=== PATIENT | female | born 1945 | race Caucasian/White ===

== ENCOUNTER → 2016-11-20 | Outpatient (CLI) | payer MEDICARE ==
--- NOTE | 2016-11-21 09:38 | MM ---
Reason for exam: screening (asymptomatic). Last mammogram was performed 1 year and 7 months ago. History: Patient is postmenopausal. Took estrogen for 16 years beginning at age 50. Took progesterone for 16 years beginning at age 50. Physical Findings: A clinical breast exam by your physician is recommended on an annual basis and results should be correlated with mammographic findings. MG 3D Screening Mammo W/Cad Bilateral CC and MLO view(s) were taken. Prior study comparison: April 16, 2015, bilateral MG 3d screening mammo w/cad. March 18, 2013, bilateral digital screening mammo w/CAD. February 05, 2011, bilateral digital screening mammo w/CAD. There are scattered fibroglandular densities. No suspicious abnormality. No significant changes when compared with prior studies. ASSESSMENT: Negative, BI-RAD 1 RECOMMENDATION: Routine screening mammogram of both breasts in 1 year.
== END | disposition home or self-care (01) ==
LOC: RADMAMWWP 15:12
PROVIDERS: ATTEND Family Medicine
DX: Z12.31 Encounter for screening mammogram for malignant neoplasm of breast (principal)
CPT/HCPCS: 77063; G0202

== ENCOUNTER → 2018-10-27 | Outpatient (CLI) | payer MEDICARE ==
--- NOTE | 2018-10-27 14:39 | MM ---
Reason for exam: screening (asymptomatic). Last mammogram was performed 1 year and 11 months ago. History: Patient is postmenopausal. Family history of breast cancer in daughter at age 45. Took estrogen for 16 years beginning at age 50. Took progesterone for 16 years beginning at age 50. Physical Findings: A clinical breast exam by your physician is recommended on an annual basis and results should be correlated with mammographic findings. MG 3D Screening Mammo W/Cad Bilateral CC and MLO view(s) were taken. Prior study comparison: November 20, 2016, bilateral MG 3d screening mammo w/cad. April 16, 2015, bilateral MG 3d screening mammo w/cad. The breast tissue is heterogeneously dense. This may lower the sensitivity of mammography. There are benign appearing round calcifications in the right breast. There is chronic nodularity in the left breast. There is no discrete abnormality. ASSESSMENT: Benign, BI-RAD 2 RECOMMENDATION: Routine screening mammogram of both breasts in 1 year.
== END | disposition home or self-care (01) ==
LOC: RADMAMWWP 10:19
PROVIDERS: ATTEND Family Medicine
DX: Z12.31 Encounter for screening mammogram for malignant neoplasm of breast (principal)
CPT/HCPCS: 77063; 77067

== ENCOUNTER → 2020-02-27 | Outpatient (CLI) | payer MEDICARE ==
--- NOTE | 2020-02-27 16:27 | BD ---
EXAMINATION TYPE: Axial Bone Density DATE OF EXAM: 02/27/2020 COMPARISON: NONE CLINICAL HISTORY: Height: 63 IN Weight: 161 LBS FRAX RISK QUESTIONS: Secondary Osteoporosis: 3. Menopause before 45: AGE 44 RISK FACTORS HISTORY OF: Surgery to Hip(IMCHAEL): RT 2012; LT 2013 Active: YES Postmenopausal woman: AGE 44 Take estrogen and/or progesterone medications: NOT NOW How long: PREVIOUSLY TOOK FOR 10 YEARS MEDICATIONS: Additional Medications: MULTI VIT, BLOOD PRESSURE MEDS, EXAM MEASUREMENTS: Bone mineral densitometry was performed using the [employer] System. Bone mineral density as measured about the Lumbar spine is: ----- L1-L4(G/cm2): 1.331 T Score Values are as follows: ----- L2: -0.4 ----- L3: 2.9 ----- L4: 3.3 ----- L1-L4: 1.3 Bone mineral density has: Increased 14.5% since study of: 08/14/2008 [facility]PLACEMENT[facility] Bone mineral density about the L Wrist (g/cm2): 0.677 T Score values are as follows: -----Dist. R+U: -0.1 -----Prox. R+U: -0.3 -----Radius total: 0.0 Bone mineral density BASELINE IMPRESSION: Normal (Values between +1 and -1 indicate normal bone mass). Consider repeating this study in 5 year s or sooner if there is some new clinical indication. NOTE: T-SCORE=SD OF THE YOUNG ADULT MEAN.
--- NOTE | 2020-02-29 08:57 | MM ---
Reason for exam: screening (asymptomatic). Last mammogram was performed 1 year and 4 months ago. History: Patient is postmenopausal. Family history of breast cancer in daughter at age 45. Took estrogen for 16 years beginning at age 50. Took progesterone for 16 years beginning at age 50. Physical Findings: A clinical breast exam by your physician is recommended on an annual basis and results should be correlated with mammographic findings. MG 3D Screening Mammo W/Cad Bilateral CC and MLO view(s) were taken. Prior study comparison: October 27, 2018, bilateral MG 3d screening mammo w/cad. November 20, 2016, bilateral MG 3d screening mammo w/cad. There are scattered fibroglandular densities. There is chronic nodularity in the left breast upper outer quadrant. No significant changes when compared with prior studies. ASSESSMENT: Negative, BI-RAD 1 RECOMMENDATION: Routine screening mammogram of both breasts in 1 year.
== END | disposition home or self-care (01) ==
LOC: RADBDWWP 12:21
PROVIDERS: ATTEND Family Medicine
DX: Z12.31 Encounter for screening mammogram for malignant neoplasm of breast (principal); Z13.820 Encounter for screening for osteoporosis
CPT/HCPCS: 77063; 77067; 77080

== ENCOUNTER → 2021-03-15 | Outpatient (CLI) | payer MEDICARE ==
--- NOTE | 2021-03-19 12:01 | MM ---
Reason for exam: screening (asymptomatic). Last mammogram was performed 1 year and 1 month ago. History: Patient is postmenopausal. Family history of breast cancer in daughter at age 45. Took estrogen for 16 years beginning at age 50. Took progesterone for 16 years beginning at age 50. Physical Findings: A clinical breast exam by your physician is recommended on an annual basis and results should be correlated with mammographic findings. MG 3D Screening Mammo W/Cad Bilateral CC and MLO view(s) were taken. Prior study comparison: February 27, 2020, bilateral MG 3d screening mammo w/cad. October 27, 2018, bilateral MG 3d screening mammo w/cad. There are scattered fibroglandular densities. There is chronic nodularity in the left upper outer quadrant. Stable asymmetric density central right CC view. No significant changes when compared with prior studies. ASSESSMENT: Benign, BI-RAD 2 RECOMMENDATION: Routine screening mammogram of both breasts in 1 year.
== END | disposition home or self-care (01) ==
LOC: RADMAMWWP 16:36
PROVIDERS: ATTEND Family Medicine
DX: Z12.31 Encounter for screening mammogram for malignant neoplasm of breast (principal)
CPT/HCPCS: 77063; 77067

== ENCOUNTER 2021-09-04 16:40 | Inpatient (IN) | payer MEDICARE ==
[2021-09-04] MEDS ORDERED: VANCOMYCIN IV PER PHARMACY 1 EACH MISC MISCELLANE PRN (20:40)
--- NOTE | 2021-09-04 20:44 | ED ---
General Adult HPI - General Chief complaint: Extremity Problem,Nontraumatic Stated complaint: infection Time Seen by Provider: 09/04/21 20:30 Source: patient, RN notes reviewed, old records reviewed Mode of arrival: ambulatory Limitations: no limitations - History of Present Illness Initial comments: This is a 75-year-old female who presents to the emergency department complaining of swelling and redness and tenderness to the elbow since chest. Patient states he was confined of the elbow yesterday and today started to spread up the posterior aspect of her arm and down the posterior aspect of her forearm. Patient states she went to see her primary medical care doctor and they sent her into the emergency department because of the extent of the redness and swelling. Patient says since they've outlined the redness a few hours ago the redness is spread beyond the line. - Related Data Allergies Allergy/AdvReac Type Severity Reaction Status Date / Time No Known Allergies Allergy Verified 09/04/21 17:04 Review of Systems ROS Statement: Those systems with pertinent positive or pertinent negative responses have been documented in the HPI. ROS Other: All systems not noted in ROS Statement are negative. Past Medical History Past Medical History: Hypertension History of Any Multi-Drug Resistant Organisms: None Reported Past Surgical History: Joint Replacement Past Psychological History: No Psychological Hx Reported Smoking Status: Never smoker Past Alcohol Use History: Occasional Past Drug Use History: None Reported General Exam - General Exam Comments Initial Comments: GENERAL: Patient is well-developed and well-nourished. Patient is nontoxic and well- hydrated and is in mild distress. ENT: Neck is soft and supple. No significant lymphadenopathy is noted. Oropharynx is clear. Moist mucous membranes. Neck has full range of motion without eliciting any pain. EYES: The sclera were anicteric and conjunctiva were pink and moist. Extraocular movements were intact and pupils were equal round and reactive to light. Eyelids were unremarkable. PULMONARY: Unlabored respirations. Good breath sounds bilaterally. No audible rales rhonchi or wheezing was noted. CARDIOVASCULAR: There is a regular rate and rhythm without any murmurs gallops or rubs. ABDOMEN: Soft and nontender with normal bowel sounds. SKIN: Skin is clear with no lesions or rashes and otherwise unremarkable. NEUROLOGIC: Patient is alert and oriented x3. Cranial nerves II through XII are grossly intact. Motor and sensory are also intact. Normal speech, volume and content. Symmetrical smile. MUSCULOSKELETAL: Posterior aspect of the elbow was swollen red fluctuant hot. Patient's arm has erythema all the way to the distal forearm and the proximal arm. Patient has outlined the area of infection and is spread since the outline was done a few hours ago. LYMPHATICS: No significant lymphadenopathy is noted PSYCHIATRIC: Normal psychiatric evaluation. Limitations: no limitations Course Vital Signs 09/04/21 17:01 Temperature 98.3 F Pulse Rate 86 Respiratory 20 Rate Blood Pressure 115/69 O2 Sat by Pulse 96 Oximetry Disposition Clinical Impression: Septic olecranon bursitis of right elbow, Cellulitis of arm, right Disposition: ADMITTED IP TO THIS HOSP Referrals: Troy Campbell III, MD [Primary Care Provider] - 1-2 days Time of Disposition: 20:44
[2021-09-04] MEDS ORDERED: VANCOMYCIN 1,250 MG in SODIUM CHLORIDE 0.9% 250 ML IVPB STA (20:47)
[2021-09-04] MEDS ORDERED: SODIUM CHLORIDE 0.9% 1,000 ML IV ONE (20:56)
--- NOTE | 2021-09-04 21:01 | XR ---
EXAMINATION TYPE: XR elbow limited RT DATE OF EXAM: 09/04/2021 8:50 PM INDICATION: Patient age:Female; 75 years old; Reason for study: Septic olecranon bursitis; COMPARISON: None TECHNIQUE: The right elbow was examined in AP, lateral, and oblique projections. FINDINGS: There is soft tissue thickening of the skin over the olecranon process. No subcutaneous gas . No evidence of fracture. No evidence of osseous erosion. No evidence of any acute osseous pathology , joint dislocation. No evidence of joint effusion is present. IMPRESSION: 1. Soft tissue thickening over the olecranon process which can be seen in setting of olecranon bursi tis. 2. No evidence of acute fracture.
[2021-09-04] MEDS: SODIUM CHLORIDE 0.9% 500 ML 500 ML IV SCH ×2 (21:17→22:15)
[2021-09-04 21:47] LABS: Basophils # (A) 0.1 k/uL (0-0.2); Basophils % (A) 0 %; Eosinophils # (A) 0.3 k/uL (0-0.7); Eosinophils % (A) 1 %; HCT 41.1 % (34.0-46.0); HGB 13.4 gm/dL (11.4-16.0); Lymphocytes # (A) 1.4 k/uL (1.0-4.8); Lymphocytes % (A) 8 %; MCH 35.1 pg (25.0-35.0); MCHC 32.7 g/dL (31.0-37.0); MCV 107.3 fL (80.0-100.0); Macrocytosis Moderate; Mean Platelet Volume 7.9; Monocytes # (A) 0.7 k/uL (0-1.0); Monocytes % (A) 4 %; Neutrophils # (A) 15.5 k/uL (1.3-7.7); Neutrophils % (A) 85 %; Platelet Count 238 k/uL (150-450); RBC 3.83 m/uL (3.80-5.40); RDW 12.7 % (11.5-15.5); WBC 18.2 k/uL (3.8-10.6)
[2021-09-04 22:00] LABS: ALT 20 U/L (4-34); AST 32 U/L (14-36); African American GFR (CKD) >90 (>60 ml/min/1.73 sqM); Albumin 4.8 g/dL (3.5-5.0); Alkaline Phosphatase 112 U/L (38-126); Anion Gap 12 mmol/L; Blood Urea Nitrogen 14 mg/dL (7-17); Calcium 9.8 mg/dL (8.4-10.2); Carbon Dioxide 23 mmol/L (22-30); Chloride 99 mmol/L (98-107); Glucose 105 mg/dL (74-99); Non-African American GFR(CKD) 89 (>60 ml/min/1.73 sqM); Potassium 4.6 mmol/L (3.5-5.1); Sodium 134 mmol/L (137-145); Total Bilirubin 0.8 mg/dL (0.2-1.3); Total Protein 7.7 g/dL (6.3-8.2)
[2021-09-05] MEDS: LORATADINE 10 MG TAB PO SCH (09:25)
[2021-09-05] MEDS: FLUTICASONE 50MCG/SPRAY NASAL 16GM EA NOSTRIL SCH (09:25)
[2021-09-05] MEDS: VANCOMYCIN 1,250 MG in SODIUM CHLORIDE 0.9% 250 ML IVPB SCH ×2 (09:26→20:22)
--- NOTE | 2021-09-05 09:29 | P.CNOR ---
History of Present Illness - [facility] Consult date: 09/05/21 Consult reason: joint pain (Right elbow pain and swelling.) History of present illness: This is a 75-year-old female admitted through the emergency department last evening with increased pain and swelling to the right elbow. She states that she began having discomfort in her right elbow on Thursday this week. By Thursday morning she had increased swelling and redness. She stated that the redness started going upper arm. She was having some low-grade fever and chills at home. She presented to the emergency department last evening and she was admitted for IV antibiotics. We are consulted for orthopedic evaluation. Past Medical History Past Medical History: Hypertension History of Any Multi-Drug Resistant Organisms: None Reported Past Surgical History: Joint Replacement Past Psychological History: No Psychological Hx Reported Smoking Status: Never smoker Past Alcohol Use History: Occasional Past Drug Use History: None Reported Medications and Allergies Home Medications Medication Instructions Recorded Confirmed Type Cetirizine HCl [Zyrtec] 10 mg PO DAILY 09/04/21 09/04/21 History Fluticasone Nasal [place] [Flonase 2 spray EA NOSTRIL DAILY 09/04/21 09/04/21 History Nasal [place]] Melatonin 10 mg PO HS 09/04/21 09/04/21 History Naproxen Sodium [Aleve] 220 mg PO BID 09/04/21 09/04/21 History Tamsulosin HCl [Flomax] 0.4 mg PO HS 09/04/21 09/04/21 History diphenhydrAMINE HCL [Benadryl] 25 mg PO HS 09/04/21 09/04/21 History Metoprolol Tartrate [Lopressor] 50 mg PO BID 09/05/21 09/05/21 History Simvastatin [Zocor] 20 mg PO HS 09/05/21 09/05/21 History lisinopriL [Zestril] 20 mg PO DAILY 09/05/21 09/05/21 History Allergies Allergy/AdvReac Type Severity Reaction Status Date / Time No Known Allergies Allergy Verified 09/04/21 21:47 Physical Examination This is a pleasant 75-year-old female in no acute distress. She is alert and oriented 3. Exam of the right upper extremity reveals erythema and swelling to the elbow. There is fluctuance to the olecranon bursa. There is a small scab to the posterior elbow. There is no active drainage at this time. She has slight limitation in range of motion of the elbow secondary to pain and swelling. Full wrist and finger motion without difficulty or pain. Neurovascular status to the upper extremity is intact. Results X-rays of the elbow reveal no acute bony abnormality. Minimal arthritic changes. - Labs Labs: Abnormal Lab Results - Last 24 Hours (Table) 09/04/21 09/04/21 Range/Units 21:38 21:38 WBC 18.2 H (3.8-10.6) k/uL MCV 107.3 H (80.0-100.0) fL MCH 35.1 H (25.0-35.0) pg Neutrophils # 15.5 H (1.3-7.7) k/uL Sodium 134 L (137-145) mmol/L Glucose 105 H (74-99) mg/dL H & H 09/04/21 Range/Units 21:38 Hgb 13.4 (11.4-16.0) gm/dL Hct 41.1 (34.0-46.0) % Result Diagrams: 09/04/21 21:38 09/04/21 21:38 Assessment and Plan (1) Cellulitis of arm, right Current Visit: Yes Status: Acute Code(s): L03.113 - CELLULITIS OF RIGHT UPPER LIMB SNOMED Code(s): 470303933 (2) Septic olecranon bursitis of right elbow Current Visit: Yes Status: Acute Code(s): M71.121 - OTHER INFECTIVE BURSITIS, RIGHT ELBOW SNOMED Code(s): 6790493243923636 Plan: The clinical and x-ray findings are discussed with the patient. We discussed the increased complication rate with opening and olecranon bursa which includes delayed healing and continued drainage postoperatively. I would like to give her least a full 24 hours on IV antibiotics before deciding on an operative treatment. I will keep her nothing by mouth after midnight tonight and reevaluate in the morning. I've ordered a K pad for moist heat. Continue IV antibiotics. Infectious disease is consulted.
[2021-09-05] MEDS: SODIUM CHLORIDE 0.9% 1,000 ML IV SCH ×2 (09:33→20:06)
--- NOTE | 2021-09-05 10:14 | P.HPIM ---
History of Present Illness This is a pleasant 75 years old female who presents with past medical history of hypertension, hyperlipidemia Patient presents because of right arm and forearm swelling, redness for about a week which started last Thursday as small pimple. Patient denies trauma or bug bite but states that it gets callous and hurts when she sits on her computer for quite some time. Denies other symptoms no chest pain or dyspnea. No diarrhea or vomiting, no urinary complaints. No fever. She denies smoking, illicit drugs. She drinks of wine every night. Vital signs stable She has leukocytosis of 18.2, rest of CBC, BMP and liver enzymes are unremarkable. Right elbow x-ray shows soft tissue thickening over the olecranon process which can be seen in the setting of olecranon bursitis. No evidence of fracture patient was started on cefazolin, IV vancomycin with IV fluids Review of Systems CONSTITUTIONAL: No fever, no malaise, no fatigue. HEENT: No recent visual problems or hearing problems. Denied any sore throat. CARDIOVASCULAR: No orthopnea, PND, no palpitations, no syncope. PULMONARY: No shortness of breath, no cough, no hemoptysis. GASTROINTESTINAL: No diarrhea, no nausea, no vomiting, no abdominal pain. Normoactive bowel sounds. NEUROLOGICAL: No headaches, no weakness, no numbness. HEMATOLOGICAL: Denies any bleeding or petechiae. GENITOURINARY: Denies any burning micturition, frequency, or urgency. MUSCULOSKELETAL/RHEUMATOLOGICAL: Denies any joint pain, swelling, or any muscle pain. ENDOCRINE: Denies any polyuria or polydipsia. Past Medical History Past Medical History: Hypertension History of Any Multi-Drug Resistant Organisms: None Reported Past Surgical History: Joint Replacement Past Psychological History: No Psychological Hx Reported Smoking Status: Never smoker Past Alcohol Use History: Occasional Past Drug Use History: None Reported Medications and Allergies Home Medications Medication Instructions Recorded Confirmed Type Cetirizine HCl [Zyrtec] 10 mg PO DAILY 09/04/21 09/04/21 History Fluticasone Nasal [place] [Flonase 2 spray EA NOSTRIL DAILY 09/04/21 09/04/21 History Nasal [place]] Melatonin 10 mg PO HS 09/04/21 09/04/21 History Naproxen Sodium [Aleve] 220 mg PO BID 09/04/21 09/04/21 History Tamsulosin HCl [Flomax] 0.4 mg PO HS 09/04/21 09/04/21 History diphenhydrAMINE HCL [Benadryl] 25 mg PO HS 09/04/21 09/04/21 History Metoprolol Tartrate [Lopressor] 50 mg PO BID 09/05/21 09/05/21 History Simvastatin [Zocor] 20 mg PO HS 09/05/21 09/05/21 History lisinopriL [Zestril] 20 mg PO DAILY 09/05/21 09/05/21 History Allergies Allergy/AdvReac Type Severity Reaction Status Date / Time No Known Allergies Allergy Verified 09/04/21 21:47 Physical Exam Vitals: Vital Signs Temp Pulse Pulse Resp BP BP Pulse Ox 09/05/21 01:24 97.9 F 95 18 123/64 97 09/04/21 23:04 98.6 F 93 18 112/74 98 09/04/21 17:01 98.3 F 86 20 115/69 96 Intake and Output 09/04/21 09/05/21 09/05/21 22:59 06:59 14:59 Intake Total 240 Balance 240 Intake: Oral 240 Other: # Voids 3 Weight 71.668 kg GENERAL: The patient is alert and oriented x3, not in any acute distress. Well developed, well nourished. HEENT: Pupils are round and equally reacting to light. EOMI. No scleral icterus. No conjunctival pallor. Normocephalic, atraumatic. No pharyngeal erythema. No thyromegaly. CARDIOVASCULAR: S1 and S2 present. No murmurs, rubs, or gallops. PULMONARY: Chest is clear to auscultation, no wheezing or crackles. ABDOMEN: Soft, nontender, nondistended, normoactive bowel sounds. No palpable organomegaly. MUSCULOSKELETAL: No joint swelling or deformity. EXTREMITIES: No cyanosis, clubbing, or pedal edema. Right elbow is swollen, warm and tender with surrounding erythema and redness and tenderness in both arm and forearm. No restriction of movement in flexion/extension of the elbow NEUROLOGICAL: Gross neurological examination did not reveal any focal deficits. SKIN: No rashes. No petechiae Results CBC & Chem 7: 09/04/21 21:38 09/04/21 21:38 Labs: Abnormal Lab Results - Last 24 Hours (Table) 09/04/21 09/04/21 Range/Units 21:38 21:38 WBC 18.2 H (3.8-10.6) k/uL MCV 107.3 H (80.0-100.0) fL MCH 35.1 H (25.0-35.0) pg Neutrophils # 15.5 H (1.3-7.7) k/uL Sodium 134 L (137-145) mmol/L Glucose 105 H (74-99) mg/dL Assessment and Plan Assessment: Acute right elbow bursitis and cellulitis Hypertension Hyperlipidemia Plan: This is a pleasant 75 years old female who presents with right elbow cellulitis and possible bursitis Continue with antibiotics per ID team. Currently is on cefazolin and IV vancomycin Monitor creatinine Orthopedic and infectious disease team consult Labs and medication were reviewed.. Continue same treatment. Continue with symptomatic treatment. Resume home medication. Monitor lytes and vitals. DVT and GI prophylaxis. Further recommendations depends on the clinical course of the patient DVT prophylaxis: Subcutaneous heparin GI Prophylaxis: Pepcid PT/OT: Pending Prognosis is guarded
[2021-09-05] MEDS ORDERED: ACETAMINOPHEN TAB 325 MG TAB PO PRN (17:51)
[2021-09-05] MEDS: FAMOTIDINE 20 MG TAB PO SCH (20:09)
[2021-09-05] MEDS: HEPARIN SODIUM,PORCINE/PF 5,000 UNIT/0.5 ML SYRINGE SQ SCH (20:09)
[2021-09-05] MEDS: ATORVASTATIN 10 MG TAB PO SCH (20:09)
[2021-09-05] MEDS: diphenhydrAMINE 25 MG CAP PO SCH (20:09)
[2021-09-05] MEDS: METOPROLOL TARTRATE 50 MG TAB PO SCH (20:09)
[2021-09-05] MEDS: MELATONIN 5 MG TABLET PO SCH (20:09)
[2021-09-05] MEDS: TAMSULOSIN 0.4 MG CAP.ER.24H PO SCH (20:09)
--- NOTE | 2021-09-05 22:22 | P.CONS ---
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 for evaluation of increasing pain and swelling to the right elbow area that apparently has been going on for about 3 to 4 days before presentation to hospital patient denies having a history of any trauma noted she did have small calluses of bilateral elbow area from the way she states however she noticed to have increasing swelling redness of the right elbow that has progressed to get worse and subsequently patient noticed the swelling of the redness progressing to the right forearm patient complaining of pain especially when area is touched or any pressure on it and is mostly dull aching to sharp 4-5 out of 10 no radiation patient denies having any drainage from the area patient did went to see her primary care physician and the patient was advised to go to the hospital on arrival to the ER patient was afebrile this morning she did have a low-grade fever of 99.4 patient did have mild tachycardia white count of 18.2 with a left shift creatinine was normal patient did have a x-ray of the elbow soft tissue thickening over the olecranon process which could be seen in the setting of olecranon bursitis no evidence of any fracture patient was started on vancomycin infectious disease was consulted for further management of antibiotic therapy Review of Systems Positive point has been mentioned in the HPI rest of the systems are negative Past Medical History Past Medical History: Hypertension History of Any Multi-Drug Resistant Organisms: None Reported Past Surgical History: Joint Replacement Past Psychological History: No Psychological Hx Reported Smoking Status: Never smoker Past Alcohol Use History: Occasional Past Drug Use History: None Reported Medications and Allergies Home Medications Medication Instructions Recorded Confirmed Type Cetirizine HCl [Zyrtec] 10 mg PO DAILY 09/04/21 09/04/21 History Fluticasone Nasal [place] [Flonase 2 spray EA NOSTRIL DAILY 09/04/21 09/04/21 History Nasal [place]] Melatonin 10 mg PO HS 09/04/21 09/04/21 History Naproxen Sodium [Aleve] 220 mg PO BID 09/04/21 09/04/21 History Tamsulosin HCl [Flomax] 0.4 mg PO HS 09/04/21 09/04/21 History diphenhydrAMINE HCL [Benadryl] 25 mg PO HS 09/04/21 09/04/21 History Metoprolol Tartrate [Lopressor] 50 mg PO BID 09/05/21 09/05/21 History Simvastatin [Zocor] 20 mg PO HS 09/05/21 09/05/21 History lisinopriL [Zestril] 20 mg PO DAILY 09/05/21 09/05/21 History Allergies Allergy/AdvReac Type Severity Reaction Status Date / Time No Known Allergies Allergy Verified 09/04/21 21:47 Physical Exam Vitals: Vital Signs Temp Pulse Pulse Resp BP BP Pulse Ox 09/05/21 08:00 99.4 F 113 H 16 128/68 95 09/05/21 07:42 97 09/05/21 01:24 97.9 F 95 18 123/64 97 09/04/21 23:04 98.6 F 93 18 112/74 98 09/04/21 17:01 98.3 F 86 20 115/69 96 Intake and Output 09/04/21 09/05/21 09/05/21 22:59 06:59 14:59 Intake Total 240 Balance 240 Intake: Oral 240 Other: # Voids 3 Weight 71.668 kg GENERAL DESCRIPTION: Elderly female lying in bed, no distress. No tachypnea or accessory muscle of respiration use. HEENT: Shows Pallor , no scleral icterus. Oral mucous membrane is dry. No pharyngeal erythema or thrush NECK: Trachea central, no thyromegaly. LUNGS: Unlabored breathing. Clear to auscultation anteriorly. No wheeze or crackle. HEART: S1, S2, regular rate and rhythm. No loud murmur ABDOMEN: Soft, no tenderness , guarding or rigidity, no organomegaly EXTREMITIES: No edema of feet. SKIN: No rash, no masses palpable. Right elbow did have swelling and redness sl ightly warm to touch and tenderness NEUROLOGICAL: The patient is awake, alert, oriented x3, mood and affect normal. Results CBC & Chem 7: 09/04/21 21:38 09/04/21 21:38 Labs: Abnormal Lab Results - Last 24 Hours (Table) 09/04/21 09/04/21 Range/Units 21:38 21:38 WBC 18.2 H (3.8-10.6) k/uL MCV 107.3 H (80.0-100.0) fL MCH 35.1 H (25.0-35.0) pg Neutrophils # 15.5 H (1.3-7.7) k/uL Sodium 134 L (137-145) mmol/L Glucose 105 H (74-99) mg/dL Assessment and Plan (1) Cellulitis of arm, right Current Visit: Yes Status: Acute Code(s): L03.113 - CELLULITIS OF RIGHT UPPER LIMB SNOMED Code(s): 156578070 (2) Septic olecranon bursitis of right elbow Current Visit: Yes Status: Acute Code(s): M71.121 - OTHER INFECTIVE BURSITIS, RIGHT ELBOW SNOMED Code(s): 8738550489701808 Plan: 1patient is a hospital with right elbow pain and swelling redness likely secondary to septic olecranon bursitis and likely from gram-positive skin jennifer such as strep and Staph aureus. 2patient will benefit from surgical I&D and deep culture to decrease the burden of infection and to document infecting pathogen. 3vancomycin pharmacy to dose target trough of 15 while watching kidney function and vancomycin trough closely. 4patient has been advised if the area started to drain to have the RN obtain cultures. We will follow on clinical condition and cultures to further adjust medication if needed Thank you for this consultation will follow this patient along with you Time with Patient: Greater than 30
[2021-09-06] MEDS ORDERED: VANCOMYCIN TROUGH DUE 1 EACH MISC MISCELLANE ONE (08:00)
[2021-09-06] MEDS: HEPARIN SODIUM,PORCINE/PF 5,000 UNIT/0.5 ML SYRINGE SQ SCH ×3 (08:17→22:01)
[2021-09-06] MEDS: VANCOMYCIN 1,250 MG in SODIUM CHLORIDE 0.9% 250 ML IVPB SCH ×2 (08:22→20:04)
[2021-09-06] MEDS: METOPROLOL TARTRATE 50 MG TAB PO SCH ×2 (08:24→20:04)
[2021-09-06] MEDS: FAMOTIDINE 20 MG TAB PO SCH ×2 (08:24→20:04)
[2021-09-06] MEDS: LORATADINE 10 MG TAB PO SCH (08:24)
[2021-09-06] MEDS: lisinopriL 20 MG TAB PO SCH (08:24)
[2021-09-06] MEDS: FLUTICASONE 50MCG/SPRAY NASAL 16GM EA NOSTRIL SCH (08:25)
[2021-09-06 11:36] LABS: Basophils # (A) 0.06 X 10*3/uL (0.00-0.10); Basophils % (A) 0.5 %; Eosinophils # (A) 0.29 X 10*3/uL (0.04-0.35); Eosinophils % (A) 2.3 %; HCT 34.5 % (37.2-46.3); HGB 11.3 g/dL (12.0-15.0); Immature Grans, Automated 0.4 %; Lymphocytes # (A) 0.95 X 10*3/uL (0.90-5.00); Lymphocytes % (A) 7.5 %; MCH 34.3 pg (27.0-32.0); MCHC 32.8 g/dL (32.0-37.0); MCV 104.9 fL (80.0-97.0); Monocytes # (A) 1.04 X 10*3/uL (0.20-1.00); Monocytes % (A) 8.3 %; NRBC Per 100 WBC 0 /100 WBCS (0.0-0.0); Platelet Count 180 X 10*3/uL (140-440); RBC 3.29 X 10*6/uL (4.10-5.20); RDW 12.3 % (11.5-14.5); WBC 12.59 X 10*3/uL (4.50-10.00)
[2021-09-06 12:10] LABS: Magnesium 1.9 mg/dL (1.5-2.4)
[2021-09-06 12:11] LABS: African American GFR (CKD) 99.6 (60.0-200.0); Anion Gap 16.4 mmol/L (10.00-18.00); BUN/Creat Ratio 11.57 Ratio (12.00-20.00); Blood Urea Nitrogen 8.1 mg/dL (9.0-27.0); Calcium 9.3 mg/dL (8.7-10.3); Carbon Dioxide 18.6 mmol/L (20.0-27.5); Potassium 4.3 mmol/L (3.5-5.5)
--- NOTE | 2021-09-06 12:19 | P.PN ---
Subjective Progress Note Date: 09/06/21 This is a 75-year-old female who is admitted for septic bursitis of the right elbow. Patient is seen and evaluated at bedside today. Patient states that her pain is controlled. Patient states that she has noticed improvement in her redness and swelling in the arm, but there continues to be swelling over the elbow. Patient states that it is painful to rest the elbow on her chair. Patient denies any fever or chills. Objective - Vital Signs Vital signs: Vital Signs Temp 97.8 F 09/06/21 06:54 Pulse 98 09/06/21 06:54 Resp 18 09/06/21 06:54 BP 134/79 09/06/21 06:54 Pulse Ox 97 09/06/21 06:54 FiO2 Intake & Output 09/05/21 09/06/21 09/06/21 18:59 06:59 18:59 Intake Total 240 Balance 240 Intake: Oral 240 Other: # Voids 3 4 - Exam On exam there is erythema and swelling over the right olecranon bursa. There is no drainage. There is tenderness to palpation over the olecranon. Patient has full range of motion of the right elbow without pain or difficulty. There is no surrounding erythema. The right upper extremity is warm and well perfused. Sensation intact. Neurovascular status and circulatory status are intact. - Labs CBC & Chem 7: 09/06/21 08:16 09/06/21 08:16 Labs: Microbiology - Last 24 Hours (Table) 09/05/21 06:39 Blood Culture - Preliminary Blood No Growth after 24 hours 09/04/21 21:20 Blood Culture - Preliminary Blood No Growth after 24 hours 09/04/21 21:05 Blood Culture - Preliminary Blood No Growth after 24 hours Assessment and Plan (1) Septic olecranon bursitis of right elbow Current Visit: Yes Status: Acute Code(s): M71.121 - OTHER INFECTIVE BURSITIS, RIGHT ELBOW SNOMED Code(s): 2180875177306524 Plan: 1. Patient is to be NPO. 2. Planning for I&D of the right elbow later today pending medical clearance and patient consent.
[2021-09-06] MEDS: LACTATED RINGERS 1,000 ML IV SCH (13:20)
[2021-09-06] MEDS ORDERED: ONDANSETRON 4 MG/2 ML VIAL ONE (13:30)
[2021-09-06] MEDS ORDERED: ONDANSETRON 4 MG/2 ML VIAL IVP ONE (13:50)
[2021-09-06] MEDS ORDERED: fentaNYL (PF) 50 MCG/ML 2 ML AMP ONE (14:25)
[2021-09-06] MEDS ORDERED: MIDAZOLAM 2 MG/2 ML VIAL ONE (14:25)
[2021-09-06] MEDS ORDERED: LIDOCAINE 2% INJ 20 MG/ML (2 ML VIAL) ONE (14:25)
[2021-09-06] MEDS ORDERED: PROPOFOL 10 MG/ML 20 ML VIAL IV ONE (14:25)
[2021-09-06] MEDS ORDERED: ceFAZolin 3,000 MG in SODIUM CHLORIDE 0.9% IRRIGATIO 3,000 ML IRRIGATION ONE (14:56)
[2021-09-06] MEDS: SODIUM CHLORIDE 0.9% 1,000 ML IV SCH ×2 (16:18→23:23)
[2021-09-06] MEDS ORDERED: HYDROmorphone 0.5 MG/0.5 ML SYRINGE IVP PRN ×3 (16:32)
[2021-09-06] MEDS ORDERED: HYDROcodone/APAP 5-325MG 1 EACH TAB PO PRN (16:32)
--- NOTE | 2021-09-06 16:53 | P.OP ---
Date of Procedure: 09/06/21 Procedure(s) Performed: PREOPERATIVE DIAGNOSES: 1. Right elbow septic olecranon bursitis with abscess POSTOPERATIVE DIAGNOSES: 1. Right elbow septic olecranon bursitis with abscess PROCEDURES PERFORMED: 1. Right elbow olecranon bursectomy 2. Right elbow septic olecranon bursitis wound irrigation and debridement (sharp EXCISIONAL debridement with knife: skin, subcutaneous tissue, bursal tissue) 3. 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 DISPOSITION: To post-anesthesia care unit INDICATIONS: Mrs. Ivy is a 75-year-old female patient with a history of infection involving the right olecranon bursa. Although the situation appears to be improving somewhat with current antibiotic treatment, I have recommended operative intervention for the elbow which has an obvious case of septic olecranon bursitis. We have considered nonoperative treatment but I do feel like there is a walled off abscess within the olecranon bursa. In addition, I described the typical path of olecranon bursal tissue in this kind of situation with likely persistent lingering problems for the foreseeable future if antibiotic treatment alone is utilized. For these reasons and after full and detailed explanation of the risks and potential complications, the patient wishes to proceed with operative intervention. I have described the risks and potential complications as being inclusive of, but not limited to: Bleeding, infection, scarring, discomfort, blood vessel and/or nerve damage, persistent infection, osteomyelitis, involvement of the tendon of the triceps, stiffness, persistent swelling, weakness, sepsis, chronic wound, loss of limb and/or life, blood clot, pulmonary embolism, and other risks. The patient is aware these risks and wishes to proceed with surgery. Consent form has been signed. PROCEDURE: After appropriate consent was obtained, the patient was taken to the operating room placed in the supine position. Anesthesia was initiated, and after confirmation of adequate anesthesia, the patient was carefully positioned. Care was taken to make sure that all pressure points were adequately padded. Prepping and draping were completed in the usual aseptic fashion using a combination of Hibiclens prep and ChloraPrep. Timeout was called, confirming patient identity, side, procedure, and administration of antibiotics. Antibiotic treatment had been initiated on the floor and therefore no further antibiotics were given. An incision was created directly over the olecranon bursa in curved fashion avoiding the tip of the olecranon. Incision was carried through skin and into subcu tissues and down to bursa. Bursal tissue was grossly infected and therefore using sharp dissection with an Allis clamp, rat-tooth pickups, and dissecting scissors and knife, this infected tissue was removed entirely. The chronic draining wound skin was debrided back to healthy tissue. Preliminary irrigation was performed using pulsatile saline. Wound soak was performed using dilute chlorhexidine solution. Final debridement was then performed , using a knife. There was no apparent involvement of the triceps tendon or olecranon bone. Wound was closed over a Hemovac drain using interrupted 4-0 nylon sutures. Sterile dressing was applied followed by snug Zak wrap and sling. Patient tolerated the procedure well and taken to recovery room in stable condition. Sponge and needle counts were correct
[2021-09-06] MEDS: diphenhydrAMINE 25 MG CAP PO SCH (20:04)
[2021-09-06] MEDS: ATORVASTATIN 10 MG TAB PO SCH (20:04)
[2021-09-06] MEDS: MELATONIN 5 MG TABLET PO SCH (20:04)
[2021-09-06] MEDS: TAMSULOSIN 0.4 MG CAP.ER.24H PO SCH (20:04)
--- NOTE | 2021-09-06 20:19 | P.PN ---
Subjective This is a pleasant 75 years old female who presents with past medical history of hypertension, hyperlipidemia Patient presents because of right arm and forearm swelling, redness for about a week which started last Thursday as small pimple. Patient denies trauma or bug bite but states that it gets callous and hurts when she sits on her computer for quite some time. Denies other symptoms no chest pain or dyspnea. No diarrhea or vomiting, no uri nary complaints. No fever. She denies smoking, illicit drugs. She drinks of wine every night. Vital signs stable She has leukocytosis of 18.2, rest of CBC, BMP and liver enzymes are unremarkable. Right elbow x-ray shows soft tissue thickening over the olecranon process which can be seen in the setting of olecranon bursitis. No evidence of fracture patient was started on cefazolin, IV vancomycin with IV fluids 09/06/2021 Patient right elbow cellulitis and bursitis improving gradually while she is an IV Vanco and normal saline 75 mL/h Patient underwent right the yu bursectomy and I&D for her abscess by orthopedic team, WC improved 18 down to 12 but there is illness of hemodilution as well Objective - Vital Signs Vital signs: Vital Signs Temp 97.8 F 09/06/21 06:54 Pulse 98 09/06/21 06:54 Resp 18 09/06/21 06:54 BP 134/79 09/06/21 06:54 Pulse Ox 97 09/06/21 06:54 FiO2 Intake & Output 09/05/21 09/06/21 09/06/21 18:59 06:59 18:59 Intake Total 240 Balance 240 Intake: Oral 240 Other: # Voids 3 4 - Exam GENERAL: The patient is alert and oriented x3, not in any acute distress. Well developed, well nourished. HEENT: Pupils are round and equally reacting to light. EOMI. No scleral icterus. No conjunctival pallor. Normocephalic, atraumatic. No pharyngeal erythema. No thyromegaly. CARDIOVASCULAR: S1 and S2 present. No murmurs, rubs, or gallops. PULMONARY: Chest is clear to auscultation, no wheezing or crackles. ABDOMEN: Soft, nontender, nondistended, normoactive bowel sounds. No palpable organomegaly. MUSCULOSKELETAL: No joint swelling or deformity. -EXTREMITIES: No cyanosis, clubbing, or pedal edema. Right elbow cellulitis and bursitis, improving NEUROLOGICAL: Gross neurological examination did not reveal any focal deficits. SKIN: No rashes. no petechiae. - Labs CBC & Chem 7: 09/06/21 08:16 09/06/21 08:16 Labs: Abnormal Lab Results - Last 24 Hours (Table) 09/06/21 09/06/21 Range/Units 08:16 08:16 WBC 12.59 H (4.50-10.00) X 10*3/uL RBC 3.29 L (4.10-5.20) X 10*6/uL Hgb 11.3 L (12.0-15.0) g/dL Hct 34.5 L (37.2-46.3) % MCV 104.9 H (80.0-97.0) fL MCH 34.3 H (27.0-32.0) pg Immature Gran # 0.05 H (0.00-0.04) X 10*3/uL Neutrophils # 10.20 H (1.80-7.70) X 10*3/uL Monocytes # 1.04 H (0.20-1.00) X 10*3/uL Carbon Dioxide 18.6 L (20.0-27.5) mmol/L BUN 8.1 L (9.0-27.0) mg/dL BUN/Creatinine Ratio 11.57 L (12.00-20.00) Ratio Microbiology - Last 24 Hours (Table) 09/05/21 06:39 Blood Culture - Preliminary Blood No Growth after 24 hours 09/04/21 21:20 Blood Culture - Preliminary Blood No Growth after 24 hours 09/04/21 21:05 Blood Culture - Preliminary Blood No Growth after 24 hours Assessment and Plan Assessment: Acute right elbow bursitis and cellulitis Hypertension Hyperlipidemia , Status post right elbow bursectomy on Plan: This is a pleasant 75 years old female who presents with right elbow cellulitis and possible bursitis Continue with antibiotics per ID team. Currently is on cefazolin and IV vancomy chantal Monitor creatinine Orthopedic and infectious disease team consult Labs and medication were reviewed.. Continue same treatment. Continue with symptomatic treatment. Resume home medication. Monitor lytes and vitals. DVT and GI prophylaxis. Further recommendations depends on the clinical course of the patient DVT prophylaxis: Subcutaneous heparin GI Prophylaxis: Pepcid PT/OT: Pending Prognosis is guarded
[2021-09-06] MEDS: HYDROcodone/APAP 5-325MG 1 EACH TAB PO PRN (21:54)
[2021-09-07] MEDS: HYDROcodone/APAP 5-325MG 1 EACH TAB PO PRN ×2 (05:35→22:04)
[2021-09-07 06:56] LABS: African American GFR (CKD) >90 (>60 ml/min/1.73 sqM); Non-African American GFR(CKD) >90 (>60 ml/min/1.73 sqM)
[2021-09-07] MEDS: LORATADINE 10 MG TAB PO SCH (08:13)
[2021-09-07] MEDS: METOPROLOL TARTRATE 50 MG TAB PO SCH ×2 (08:13→22:05)
[2021-09-07] MEDS: lisinopriL 20 MG TAB PO SCH (08:13)
[2021-09-07] MEDS: VANCOMYCIN 1,250 MG in SODIUM CHLORIDE 0.9% 250 ML IVPB SCH ×2 (08:13→22:06)
[2021-09-07] MEDS: FLUTICASONE 50MCG/SPRAY NASAL 16GM EA NOSTRIL SCH (08:13)
[2021-09-07] MEDS: HEPARIN SODIUM,PORCINE/PF 5,000 UNIT/0.5 ML SYRINGE SQ SCH ×2 (08:13→22:06)
[2021-09-07] MEDS: FAMOTIDINE 20 MG TAB PO SCH ×2 (08:13→22:05)
[2021-09-07 08:39] LABS: HCT 34.4 % (37.2-46.3); HGB 11.2 g/dL (12.0-15.0); MCH 34.3 pg (27.0-32.0); MCHC 32.6 g/dL (32.0-37.0); MCV 105.2 fL (80.0-97.0); Mean Platelet Volume 10.3 fL (9.5-12.2); NRBC Per 100 WBC 0 /100 WBCS (0.0-0.0); Platelet Count 226 X 10*3/uL (140-440); RBC 3.27 X 10*6/uL (4.10-5.20); RDW 12.1 % (11.5-14.5); WBC 8.66 X 10*3/uL (4.50-10.00)
[2021-09-07] MEDS: NAPROXEN 250 MG TAB PO PRN (09:04)
--- NOTE | 2021-09-07 09:13 | P.PN ---
Subjective Progress Note Date: 09/07/21 Principal diagnosis: Septic olecranon bursitis right elbow. This is a 75-year-old female who is postop day #1 status post I&D of the right elbow with excision of olecranon bursa. She has no new complaints or concerns today. Vital signs are stable. Cultures are pending. Objective - Vital Signs Vital signs: Vital Signs Temp 98.3 F 09/07/21 07:51 Pulse 72 09/07/21 07:51 Resp 16 09/07/21 07:51 BP 116/69 09/07/21 07:51 Pulse Ox 95 09/07/21 07:51 FiO2 Intake & Output 09/06/21 09/07/21 09/07/21 18:59 06:59 18:59 Intake Total 451 Output Total 5 40 Balance 446 -40 Intake: IV 451 Output: Drainage 40 Right Elbow 40 Estimated Blood Loss 5 Other: Voiding Method Toilet # Voids 3 - Exam This is a pleasant 75-year-old female in no acute distress. She is alert and oriented 3. Exam of the right elbow reveals that her swelling is significantly improved. Incision has minimal drainage. There is no erythema. Hemovac drain in place. She has fairly good elbow range of motion. Neurovascular status to the upper extremity is intact. - Labs CBC & Chem 7: 09/07/21 06:00 09/07/21 06:00 Labs: Abnormal Lab Results - Last 24 Hours (Table) 09/06/21 09/06/21 09/07/21 Range/Units 08:16 08:16 06:00 WBC 12.59 H (4.50-10.00) X 10*3/uL RBC 3.29 L 3.27 L (4.10-5.20) X 10*6/uL Hgb 11.3 L 11.2 L (12.0-15.0) g/dL Hct 34.5 L 34.4 L (37.2-46.3) % MCV 104.9 H 105.2 H (80.0-97.0) fL MCH 34.3 H 34.3 H (27.0-32.0) pg Immature Gran # 0.05 H (0.00-0.04) X 10*3/uL Neutrophils # 10.20 H (1.80-7.70) X 10*3/uL Monocytes # 1.04 H (0.20-1.00) X 10*3/uL Carbon Dioxide 18.6 L (20.0-27.5) mmol/L BUN 8.1 L (9.0-27.0) mg/dL BUN/Creatinine Ratio 11.57 L (12.00-20.00) Ratio Microbiology - Last 24 Hours (Table) 09/05/21 06:39 Blood Culture - Preliminary Blood No Growth after 48 hours 09/06/21 15:11 Wound Culture - Preliminary Elbow - Right 09/06/21 15:10 Wound Culture - Preliminary Elbow - Right 09/06/21 15:13 Tissue Culture - Preliminary Elbow - Right 09/04/21 21:20 Blood Culture - Preliminary Blood No Growth after 48 hours 09/04/21 21:05 Blood Culture - Preliminary Blood No Growth after 48 hours Assessment and Plan (1) Cellulitis of arm, right Current Visit: Yes Status: Acute Code(s): L03.113 - CELLULITIS OF RIGHT UPPER LIMB SNOMED Code(s): 470990033 (2) Septic olecranon bursitis of right elbow Current Visit: Yes Status: Acute Code(s): M71.121 - OTHER INFECTIVE BURSITIS, RIGHT ELBOW SNOMED Code(s): 0649368205870263 Plan: The clinical findings are discussed with the patient. Dressing has been changed. Hemovac is left in today. I will leave it up to the discretion of infectious disease as to whether pulled the Hemovac drain. We will await final cultures. Antibiotics per infectious disease.
[2021-09-07 10:32] LABS: Basophils # (A) 0.08 X 10*3/uL (0.00-0.10); Basophils % (A) 0.9 %; Eosinophils % (A) 4.6 %; Immature Grans, Automated 0.5 %; Lymphocytes # (A) 1.18 X 10*3/uL (0.90-5.00); Lymphocytes % (A) 13.6 %; Monocytes # (A) 1.05 X 10*3/uL (0.20-1.00); Monocytes % (A) 12.1 %; Neutrophils # (A) 5.91 X 10*3/uL (1.80-7.70); Neutrophils % (A) 68.3 %
[2021-09-07 10:33] LABS: Macrocytosis (M) 2+
--- NOTE | 2021-09-07 11:47 | P.PN ---
Subjective This is a pleasant 75 years old female who presents with past medical history of hypertension, hyperlipidemia Patient presents because of right arm and forearm swelling, redness for about a week which started last Thursday as small pimple. Patient denies trauma or bug bite but states that it gets callous and hurts when she sits on her computer for quite some time. Denies other symptoms no chest pain or dyspnea. No diarrhea or vomiting, no uri nary complaints. No fever. She denies smoking, illicit drugs. She drinks of wine every night. Vital signs stable She has leukocytosis of 18.2, rest of CBC, BMP and liver enzymes are unremarkable. Right elbow x-ray shows soft tissue thickening over the olecranon process which can be seen in the setting of olecranon bursitis. No evidence of fracture patient was started on cefazolin, IV vancomycin with IV fluids 09/06/2021 Patient right elbow cellulitis and bursitis improving gradually while she is an IV Vanco and normal saline 75 mL/h Patient underwent right the yu bursectomy and I&D for her abscess by orthopedic team, WC improved 18 down to 12 but there is illness of hemodilution as well 09/07/2021 Patient is status post right olecranon bursectomy and IND of her abscess. Surgi krzysztof wound is in dressing which is changed today and looked at by surgery team. Cellulitis is improving. She remains on IV vancomycin and gentle hydration. Leukocyte is back to normal today at 8.6 Blood culture is pending Objective - Vital Signs Vital signs: Vital Signs Temp 98.3 F 09/07/21 07:51 Pulse 72 09/07/21 07:51 Resp 16 09/07/21 07:51 BP 116/69 09/07/21 07:51 Pulse Ox 95 09/07/21 07:51 FiO2 Intake & Output 09/06/21 09/07/21 09/07/21 18:59 06:59 18:59 Intake Total 451 Output Total 5 40 Balance 446 -40 Intake: IV 451 Output: Drainage 40 Right Elbow 40 Estimated Blood Loss 5 Other: Voiding Method Toilet # Voids 3 - Exam GENERAL: The patient is alert and oriented x3, not in any acute distress. Well developed, well nourished. HEENT: Pupils are round and equally reacting to light. EOMI. No scleral icterus. No conjunctival pallor. Normocephalic, atraumatic. No pharyngeal erythema. No thyromegaly. CARDIOVASCULAR: S1 and S2 present. No murmurs, rubs, or gallops. PULMONARY: Chest is clear to auscultation, no wheezing or crackles. ABDOMEN: Soft, nontender, nondistended, normoactive bowel sounds. No palpable organomegaly. MUSCULOSKELETAL: No joint swelling or deformity. -EXTREMITIES: No cyanosis, clubbing, or pedal edema. Right elbow cellulitis and bursitis, improving NEUROLOGICAL: Gross neurological examination did not reveal any focal deficits. SKIN: No rashes. no petechiae. - Labs CBC & Chem 7: 09/07/21 06:00 09/07/21 06:00 Labs: Abnormal Lab Results - Last 24 Hours (Table) 09/06/21 09/06/21 09/07/21 Range/Units 08:16 08:16 06:00 WBC 12.59 H (4.50-10.00) X 10*3/uL RBC 3.29 L 3.27 L (4.10-5.20) X 10*6/uL Hgb 11.3 L 11.2 L (12.0-15.0) g/dL Hct 34.5 L 34.4 L (37.2-46.3) % MCV 104.9 H 105.2 H (80.0-97.0) fL MCH 34.3 H 34.3 H (27.0-32.0) pg Immature Gran # 0.05 H (0.00-0.04) X 10*3/uL Neutrophils # 10.20 H (1.80-7.70) X 10*3/uL Monocytes # 1.04 H (0.20-1.00) X 10*3/uL Carbon Dioxide 18.6 L (20.0-27.5) mmol/L BUN 8.1 L (9.0-27.0) mg/dL BUN/Creatinine Ratio 11.57 L (12.00-20.00) Ratio Microbiology - Last 24 Hours (Table) 09/05/21 06:39 Blood Culture - Preliminary Blood No Growth after 48 hours 09/06/21 15:11 Wound Culture - Preliminary Elbow - Right 09/06/21 15:10 Wound Culture - Preliminary Elbow - Right 09/06/21 15:13 Tissue Culture - Preliminary Elbow - Right 09/04/21 21:20 Blood Culture - Preliminary Blood No Growth after 48 hours 09/04/21 21:05 Blood Culture - Preliminary Blood No Growth after 48 hours Assessment and Plan Assessment: Acute right elbow bursitis and cellulitis Hypertension Hyperlipidemia , Status post right elbow bursectomy on Plan: This is a pleasant 75 years old female who presents with right elbow cellulitis and possible bursitis Continue with antibiotics per ID team. Currently is on cefazolin and IV vancomycin Monitor creatinine Orthopedic and infectious disease team consult Labs and medication were reviewed.. Continue same treatment. Continue with symptomatic treatment. Resume home medication. Monitor lytes and vitals. DVT and GI prophylaxis. Further recommendations depends on the clinical course of the patient DVT prophylaxis: Subcutaneous heparin GI Prophylaxis: Pepcid PT/OT: Pending Prognosis is guarded
[2021-09-07] MEDS: SODIUM CHLORIDE 0.9% 1,000 ML IV SCH (14:14)
[2021-09-07] MEDS: LACTATED RINGERS 1,000 ML IV SCH (14:15)
--- NOTE | 2021-09-07 22:02 | P.PN ---
Subjective Progress Note Date: 09/06/21 Principal diagnosis: Right elbow septic olecranon bursitis Patient is a 75-year-old female presenting to the hospital with right elbow pain swelling and redness has been diagnosed with right elbow septic bursitis. On today's evaluation that is 09/06/2021, patient denies having any fever or any chills, the patient paid to the right elbow is currently controlled, patient denies having any chest pain shortness of breath or cough no abdominal pain no diarrhea Objective - Vital Signs Vital signs: Vital Signs Temp 97.8 F 09/06/21 06:54 Pulse 98 09/06/21 06:54 Resp 18 09/06/21 06:54 BP 134/79 09/06/21 06:54 Pulse Ox 97 09/06/21 06:54 FiO2 Intake & Output 09/05/21 09/06/21 09/06/21 18:59 06:59 18:59 Intake Total 240 Balance 240 Intake: Oral 240 Other: # Voids 3 4 - Exam GENERAL DESCRIPTION: An elderly female lying in bed in no distress RESPIRATORY SYSTEM: Unlabored breathing , decreased breath sounds at bases HEART: S1 S2 regular rate and rhythm , ABDOMEN: Soft , no tenderness EXTREMITIES: Right elbow swelling redness has slightly decreased no drainage - Labs CBC & Chem 7: 09/07/21 06:00 09/07/21 06:00 Labs: Abnormal Lab Results - Last 24 Hours (Table) 09/06/21 09/06/21 Range/Units 08:16 08:16 WBC 12.59 H (4.50-10.00) X 10*3/uL RBC 3.29 L (4.10-5.20) X 10*6/uL Hgb 11.3 L (12.0-15.0) g/dL Hct 34.5 L (37.2-46.3) % MCV 104.9 H (80.0-97.0) fL MCH 34.3 H (27.0-32.0) pg Immature Gran # 0.05 H (0.00-0.04) X 10*3/uL Neutrophils # 10.20 H (1.80-7.70) X 10*3/uL Monocytes # 1.04 H (0.20-1.00) X 10*3/uL Carbon Dioxide 18.6 L (20.0-27.5) mmol/L BUN 8.1 L (9.0-27.0) mg/dL BUN/Creatinine Ratio 11.57 L (12.00-20.00) Ratio Microbiology - Last 24 Hours (Table) 09/05/21 06:39 Blood Culture - Preliminary Blood No Growth after 24 hours 09/04/21 21:20 Blood Culture - Preliminary Blood No Growth after 24 hours 09/04/21 21:05 Blood Culture - Preliminary Blood No Growth after 24 hours Assessment and Plan (1) Cellulitis of arm, right Current Visit: Yes Status: Acute Code(s): L03.113 - CELLULITIS OF RIGHT UPPER LIMB SNOMED Code(s): 160236922 (2) Septic olecranon bursitis of right elbow Current Visit: Yes Status: Acute Code(s): M71.121 - OTHER INFECTIVE BURSITIS, RIGHT ELBOW SNOMED Code(s): 5783496834087959 [facility] and swelling redness likely secondary to septic olecranon bursitis and likely from gram-positive skin jennifer such as strep and Staph aureus. 2patient is scheduled for surgical bursectomy and culture this afternoon 3patient will continue vancomycin pharmacy to dose target trough of 15 while watching kidney function and vancomycin trough closely.
[2021-09-07] MEDS: MELATONIN 5 MG TABLET PO SCH (22:04)
--- NOTE | 2021-09-07 22:04 | P.PN ---
Subjective Progress Note Date: 09/07/21 Principal diagnosis: Right elbow septic olecranon bursitis Patient is a 75-year-old female presenting to the hospital with right elbow pain swelling and redness has been diagnosed with right elbow septic bursitis. Patient is status post right elbow bursectomy and cultures completed on 09/06/2021 On today's evaluation that is 09/07/2021, patient remains to be afebrile, the patient pain to the right elbow is currently controlled, patient denies chest pain shortness of breath or cough no abdominal pain no diarrhea Objective - Vital Signs Vital signs: Vital Signs Temp 98.5 F 09/07/21 14:47 Pulse 78 09/07/21 14:47 Resp 17 09/07/21 14:47 BP 132/77 09/07/21 14:47 Pulse Ox 98 09/07/21 15:22 FiO2 Intake & Output 09/06/21 09/07/21 09/07/21 18:59 06:59 18:59 Intake Total 451 Output Total 5 40 Balance 446 -40 Intake: IV 451 Output: Drainage 40 Right Elbow 40 Estimated Blood Loss 5 Other: Voiding Method Toilet # Voids 3 4 - Exam GENERAL DESCRIPTION: An elderly female lying in bed in no distress RESPIRATORY SYSTEM: Unlabored breathing , decreased breath sounds at bases HEART: S1 S2 regular rate and rhythm , ABDOMEN: Soft , no tenderness EXTREMITIES: Right elbow is currently dressed no drainage on the dressing - Labs CBC & Chem 7: 09/07/21 06:00 09/07/21 06:00 Labs: Abnormal Lab Results - Last 24 Hours (Table) 09/07/21 Range/Units 06:00 RBC 3.27 L (4.10-5.20) X 10*6/uL Hgb 11.2 L (12.0-15.0) g/dL Hct 34.4 L (37.2-46.3) % MCV 105.2 H (80.0-97.0) fL MCH 34.3 H (27.0-32.0) pg Monocytes # 1.05 H (0.20-1.00) X 10*3/uL Eosinophils # 0.40 H (0.04-0.35) X 10*3/uL Microbiology - Last 24 Hours (Table) 09/05/21 06:39 Blood Culture - Preliminary Blood No Growth after 48 hours 09/06/21 15:11 Wound Culture - Preliminary Elbow - Right 09/06/21 15:10 Wound Culture - Preliminary Elbow - Right 09/06/21 15:13 Tissue Culture - Preliminary Elbow - Right 09/04/21 21:20 Blood Culture - Preliminary Blood No Growth after 48 hours 09/04/21 21:05 Blood Culture - Preliminary Blood No Growth after 48 hours Assessment and Plan (1) Cellulitis of arm, right Current Visit: Yes Status: Acute Code(s): L03.113 - CELLULITIS OF RIGHT UPPER LIMB SNOMED Code(s): 331270791 (2) Septic olecranon bursitis of right elbow Current Visit: Yes Status: Acute Code(s): M71.121 - OTHER INFECTIVE BURSITIS, RIGHT ELBOW SNOMED Code(s): 5699066977078300 Plan: 1patient is a hospital with right elbow pain and swelling redness likely secondary to septic olecranon bursitis and likely from gram-positive skin jennifer such as strep and Staph aureus. 2patient is status post surgical bursectomy and culture which are currently pending 3patient will continue vancomycin pharmacy to dose while waiting for the cultures to finalize
[2021-09-07] MEDS: ATORVASTATIN 10 MG TAB PO SCH (22:05)
[2021-09-07] MEDS: diphenhydrAMINE 25 MG CAP PO SCH (22:05)
[2021-09-07] MEDS: TAMSULOSIN 0.4 MG CAP.ER.24H PO SCH (22:05)
[2021-09-08] MEDS: SODIUM CHLORIDE 0.9% 1,000 ML IV SCH ×2 (04:05→18:40)
[2021-09-08] MEDS: lisinopriL 20 MG TAB PO SCH (08:03)
[2021-09-08] MEDS: FAMOTIDINE 20 MG TAB PO SCH ×2 (08:03→22:09)
[2021-09-08] MEDS: METOPROLOL TARTRATE 50 MG TAB PO SCH ×2 (08:03→22:08)
[2021-09-08] MEDS: LORATADINE 10 MG TAB PO SCH (08:03)
[2021-09-08] MEDS: VANCOMYCIN 1,250 MG in SODIUM CHLORIDE 0.9% 250 ML IVPB SCH ×2 (08:03→22:07)
--- NOTE | 2021-09-08 09:47 | P.PN ---
Subjective Progress Note Date: 09/08/21 Principal diagnosis: Septic olecranon bursitis right elbow. Status post I&D and bursectomy right elbow. This is a 75-year-old female who is postop day #2 status post I&D of the right elbow with excision of olecranon bursa. She has no new complaints or concerns today. Vital signs are stable. Cultures are positive for presumptive staph. Sensitivity pending. Objective - Vital Signs Vital signs: Vital Signs Temp 98.7 F 09/08/21 08:00 Pulse 75 09/08/21 08:00 Resp 16 09/08/21 08:00 BP 159/89 09/08/21 08:00 Pulse Ox 98 09/08/21 08:00 FiO2 Intake & Output 09/07/21 09/08/21 09/08/21 18:59 06:59 18:59 Intake Total 540 Output Total 20 Balance -20 540 Intake: Oral 540 Output: Drainage 20 Right Elbow 20 Other: Voiding Method Toilet # Voids 4 2 - Exam This is a pleasant 75-year-old female in no acute distress. She is alert and oriented 3. Exam of the right elbow reveals that her swelling is significantly improved. Incision has minimal drainage. There is no erythema. Hemovac drain in place. 40 mL drained since 6:00 last night from the Hemovac. She has fairly good elbow range of motion. Neurovascular status to the upper extremity is intact. - Labs CBC & Chem 7: 09/07/21 06:00 09/07/21 06:00 Labs: Abnormal Lab Results - Last 24 Hours (Table) 09/07/21 Range/Units 06:00 Monocytes # 1.05 H (0.20-1.00) X 10*3/uL Eosinophils # 0.40 H (0.04-0.35) X 10*3/uL Microbiology - Last 24 Hours (Table) 09/05/21 06:39 Blood Culture - Preliminary Blood No Growth after 72 hours 09/06/21 15:10 Gram Stain - Preliminary Elbow - Right Wound Culture - Preliminary Presumptive Staph aureus 09/06/21 15:11 Gram Stain - Preliminary Elbow - Right Wound Culture - Preliminary Presumptive Staph aureus 09/06/21 15:13 Gram Stain - Preliminary Elbow - Right Tissue Culture - Preliminary Presumptive Staph aureus 09/04/21 21:20 Blood Culture - Preliminary Blood No Growth after 72 hours 09/04/21 21:05 Blood Culture - Preliminary Blood No Growth after 72 hours Assessment and Plan (1) Cellulitis of arm, right Current Visit: Yes Status: Acute Code(s): L03.113 - CELLULITIS OF RIGHT UPPER LIMB SNOMED Code(s): 144968843 (2) Septic olecranon bursitis of right elbow Current Visit: Yes Status: Acute Code(s): M71.121 - OTHER INFECTIVE BURSITIS, RIGHT ELBOW SNOMED Code(s): 8653931885591159 Plan: The clinical findings are discussed with the patient. Dressing has been changed. Hemovac is left in today. I will leave it up to the discretion of infectious disease as to whether pulled the Hemovac drain. We will await final cultures. Antibiotics per infectious disease.
[2021-09-08 10:52] LABS: African American GFR (CKD) >90 (>60 ml/min/1.73 sqM); Non-African American GFR(CKD) >90 (>60 ml/min/1.73 sqM)
[2021-09-08] MEDS: FLUTICASONE 50MCG/SPRAY NASAL 16GM EA NOSTRIL SCH (11:18)
[2021-09-08] MEDS: HEPARIN SODIUM,PORCINE/PF 5,000 UNIT/0.5 ML SYRINGE SQ SCH ×2 (11:18→22:09)
[2021-09-08] MEDS: NAPROXEN 250 MG TAB PO PRN (12:41)
--- NOTE | 2021-09-08 17:35 | P.PN ---
Subjective This is a pleasant 75 years old female who presents with past medical history of hypertension, hyperlipidemia Patient presents because of right arm and forearm swelling, redness for about a week which started last Thursday as small pimple. Patient denies trauma or bug bite but states that it gets callous and hurts when she sits on her computer for quite some time. Denies other symptoms no chest pain or dyspnea. No diarrhea or vomiting, no uri nary complaints. No fever. She denies smoking, illicit drugs. She drinks of wine every night. Vital signs stable She has leukocytosis of 18.2, rest of CBC, BMP and liver enzymes are unremarkable. Right elbow x-ray shows soft tissue thickening over the olecranon process which can be seen in the setting of olecranon bursitis. No evidence of fracture patient was started on cefazolin, IV vancomycin with IV fluids 09/06/2021 Patient right elbow cellulitis and bursitis improving gradually while she is an IV Vanco and normal saline 75 mL/h Patient underwent right the yu bursectomy and I&D for her abscess by orthopedic team, WC improved 18 down to 12 but there is illness of hemodilution as well 09/07/2021 Patient is status post right olecranon bursectomy and IND of her abscess. Surgi krzysztof wound is in dressing which is changed today and looked at by surgery team. Cellulitis is improving. She remains on IV vancomycin and gentle hydration. Leukocyte is back to normal today at 8.6 Blood culture is pending 09/08/2021 Patient improving each day and her swelling and cellulitis significantly improved in her right approximately but not completely resolved. Surgical wound with dressing and drain in place. Wound culture is growing staph, final sensitivities pending. She was on IV vancomycin Orthopedic team on the case as well Objective - Vital Signs Vital signs: Vital Signs Temp 98.7 F 09/08/21 08:00 Pulse 75 09/08/21 08:00 Resp 16 09/08/21 08:00 BP 159/89 09/08/21 08:00 Pulse Ox 98 09/08/21 08:00 FiO2 Intake & Output 09/07/21 09/08/21 09/08/21 18:59 06:59 18:59 Intake Total 540 Output Total 20 Balance -20 540 Intake: Oral 540 Output: Drainage 20 Right Elbow 20 Other: Voiding Method Toilet Toilet # Voids 4 2 - Exam GENERAL: The patient is alert and oriented x3, not in any acute distress. Well developed, well nourished. HEENT: Pupils are round and equally reacting to light. EOMI. No scleral icterus. No conjunctival pallor. Normocephalic, atraumatic. No pharyngeal erythema. No thyromegaly. CARDIOVASCULAR: S1 and S2 present. No murmurs, rubs, or gallops. PULMONARY: Chest is clear to auscultation, no wheezing or crackles. ABDOMEN: Soft, nontender, nondistended, normoactive bowel sounds. No palpable organomegaly. MUSCULOSKELETAL: No joint swelling or deformity. -EXTREMITIES: No cyanosis, clubbing, or pedal edema. Right elbow cellulitis and bursitis, improving NEUROLOGICAL: Gross neurological examination did not reveal any focal deficits. SKIN: No rashes. no petechiae. - Labs CBC & Chem 7: 09/07/21 06:00 09/08/21 10:19 Labs: Microbiology - Last 24 Hours (Table) 09/05/21 06:39 Blood Culture - Preliminary Blood No Growth after 72 hours 09/06/21 15:10 Gram Stain - Preliminary Elbow - Right Wound Culture - Preliminary Presumptive Staph aureus 09/06/21 15:11 Gram Stain - Preliminary Elbow - Right Wound Culture - Preliminary Presumptive Staph aureus 09/06/21 15:13 Gram Stain - Preliminary Elbow - Right Tissue Culture - Preliminary Presumptive Staph aureus 09/04/21 21:20 Blood Culture - Preliminary Blood No Growth after 72 hours 09/04/21 21:05 Blood Culture - Preliminary Blood No Growth after 72 hours Assessment and Plan Assessment: Acute right elbow bursitis and cellulitis Hypertension Hyperlipidemia , Status post right elbow bursectomy on Plan: This is a pleasant 75 years old female who presents with right elbow cellulitis and possible bursitis Continue with antibiotics per ID team. Currently is on cefazolin and IV vancomycin Monitor creatinine Orthopedic and infectious disease team consult Labs and medication were reviewed.. Continue same treatment. Continue with symptomatic treatment. Resume home medication. Monitor lytes and vitals. DVT and GI prophylaxis. Further recommendations depends on the clinical course of the patient DVT prophylaxis: Subcutaneous heparin GI Prophylaxis: Pepcid PT/OT: Pending Prognosis is guarded
[2021-09-08] MEDS: LACTATED RINGERS 1,000 ML IV SCH (18:40)
[2021-09-08] MEDS: HYDROcodone/APAP 5-325MG 1 EACH TAB PO PRN (22:07)
[2021-09-08] MEDS: diphenhydrAMINE 25 MG CAP PO SCH (22:08)
[2021-09-08] MEDS: MELATONIN 5 MG TABLET PO SCH (22:08)
[2021-09-08] MEDS: TAMSULOSIN 0.4 MG CAP.ER.24H PO SCH (22:08)
[2021-09-08] MEDS: ATORVASTATIN 10 MG TAB PO SCH (22:08)
[2021-09-09] MEDS: SODIUM CHLORIDE 0.9% 1,000 ML IV SCH (04:20)
--- NOTE | 2021-09-09 06:58 | P.PN ---
Subjective Progress Note Date: 09/08/21 Principal diagnosis: Right elbow septic olecranon bursitis Patient is a 75-year-old female presenting to the hospital with right elbow pain swelling and redness has been diagnosed with right elbow septic bursitis. Patient is status post right elbow bursectomy and cultures completed on 09/06/2021 On today's evaluation that is 09/08/2021, patient denies any fever or chills, the patient denies any worsening pain to the right elbow, patient did have about 40 mL of drainage from the right elbow area the last 24 hours, patient denies chest pain shortness of breath or cough no abdominal pain no diarrhea Objective - Vital Signs Vital signs: Vital Signs Temp 98.7 F 09/08/21 08:00 Pulse 75 09/08/21 08:00 Resp 16 09/08/21 08:00 BP 159/89 09/08/21 08:00 Pulse Ox 98 09/08/21 08:00 FiO2 Intake & Output 09/07/21 09/08/21 09/08/21 18:59 06:59 18:59 Intake Total 540 Output Total 20 Balance -20 540 Intake: Oral 540 Output: Drainage 20 Right Elbow 20 Other: Voiding Method Toilet Toilet # Voids 4 2 - Exam GENERAL DESCRIPTION: An elderly female lying in bed in no distress RESPIRATORY SYSTEM: Unlabored breathing , decreased breath sounds at bases HEART: S1 S2 regular rate and rhythm , ABDOMEN: Soft , no tenderness EXTREMITIES: Right elbow is currently dressed no drainage on the dressing - Labs CBC & Chem 7: 09/07/21 06:00 09/08/21 10:19 Labs: Microbiology - Last 24 Hours (Table) 09/05/21 06:39 Blood Culture - Preliminary Blood No Growth after 72 hours 09/06/21 15:10 Gram Stain - Preliminary Elbow - Right Wound Culture - Preliminary Presumptive Staph aureus 09/06/21 15:11 Gram Stain - Preliminary Elbow - Right Wound Culture - Preliminary Presumptive Staph aureus 09/06/21 15:13 Gram Stain - Preliminary Elbow - Right Tissue Culture - Preliminary Presumptive Staph aureus 09/04/21 21:20 Blood Culture - Preliminary Blood No Growth after 72 hours 09/04/21 21:05 Blood Culture - Preliminary Blood No Growth after 72 hours Assessment and Plan (1) Cellulitis of arm, right Current Visit: Yes Status: Acute Code(s): L03.113 - CELLULITIS OF RIGHT UPPER LIMB SNOMED Code(s): 848301214 (2) Septic olecranon bursitis of right elbow Current Visit: Yes Status: Acute Code(s): M71.121 - OTHER INFECTIVE BURSITIS, RIGHT ELBOW SNOMED Code(s): 1744453561027809 Plan: 1patient is a hospital with right elbow pain and swelling redness likely secondary to septic olecranon bursitis and likely from gram-positive skin jennifer such as strep and Staph aureus. 2patient is status post surgical bursectomy and culture which are currently growing Staphylococcus aureus with sensitivities pending 3patient seemed to have shown clinical improvement and will continue vancomycin pharmacy to dose while waiting for the cultures to finalize Time with Patient: Less than 30
[2021-09-09 07:54] VITALS: BP 117/67; PULSE 89; RESP 20; TEMP 97.8
[2021-09-09] MEDS ORDERED: VANCOMYCIN TROUGH DUE 1 EACH MISC MISCELLANE ONE (08:00)
[2021-09-09] MEDS: lisinopriL 20 MG TAB PO SCH (09:02)
[2021-09-09] MEDS: METOPROLOL TARTRATE 50 MG TAB PO SCH (09:02)
[2021-09-09] MEDS: LORATADINE 10 MG TAB PO SCH (09:02)
[2021-09-09] MEDS: HEPARIN SODIUM,PORCINE/PF 5,000 UNIT/0.5 ML SYRINGE SQ SCH (09:02)
[2021-09-09] MEDS: FAMOTIDINE 20 MG TAB PO SCH (09:02)
[2021-09-09] MEDS: FLUTICASONE 50MCG/SPRAY NASAL 16GM EA NOSTRIL SCH (09:03)
[2021-09-09] MEDS: NAPROXEN 250 MG TAB PO PRN (09:32)
[2021-09-09] MEDS ORDERED: cefTRIAXone 1,000 MG VIAL (IM USE) IM STA (11:18)
--- NOTE | 2021-09-09 20:16 | P.PN ---
Subjective Progress Note Date: 09/09/21 Principal diagnosis: Right septic olecranon bursitis Patient is a 75-year-old female is seen at bedside this morning who is postop day #3 status post I&D of the right elbow with excision of olecranon bursa. She has no new complaints or concerns today. Vital signs are stable. Cultures are positive for MSSA. Objective - Vital Signs Vital signs: Vital Signs Temp 97.8 F 09/09/21 07:54 Pulse 89 09/09/21 07:54 Resp 20 09/09/21 07:54 BP 117/67 09/09/21 07:54 Pulse Ox 99 09/09/21 07:54 FiO2 Intake & Output 09/08/21 09/09/21 09/09/21 18:59 06:59 18:59 Other: Voiding Method Toilet Toilet # Voids 4 3 - Exam Exam of the right elbow reveals that her swelling has continued to be improved. Incision has no drainage. There is no erythema. Hemovac drain in place. She has fairly good elbow range of motion. Neurovascular status to the upper extremity is intact. - Constitutional General appearance: Present: no acute distress - Labs CBC & Chem 7: 09/07/21 06:00 09/08/21 10:19 Labs: Microbiology - Last 24 Hours (Table) 09/05/21 06:39 Blood Culture - Preliminary Blood No Growth after 96 hours 09/04/21 21:20 Blood Culture - Preliminary Blood No Growth after 96 hours 09/04/21 21:05 Blood Culture - Preliminary Blood No Growth after 96 hours 09/06/21 15:10 Gram Stain - Final Elbow - Right Wound Culture - Final Staphylococcus aureus 09/06/21 15:11 Gram Stain - Final Elbow - Right Wound Culture - Final Staphylococcus aureus 09/06/21 15:13 Gram Stain - Preliminary Elbow - Right Tissue Culture - Preliminary Presumptive Staph aureus Assessment and Plan (1) Septic olecranon bursitis of right elbow Narrative/Plan: Her drain was pulled, she is okay to D/C if okay with IM/ID. Antibiotics per ID. F/U in office 7-10 days for suture removal and recheck. She was advised on restrictions and wound care Status: Acute Priority: Medium Code(s): M71.121 - OTHER INFECTIVE BURSITIS, RIGHT ELBOW SNOMED Code(s): 8662175403117371 Time with Patient: Less than 30
== END 2021-09-09 14:50 | disposition home or self-care (01) | DRG 464 ==
LOC: EC 16:40 → 4SSUR 20:47
PROVIDERS: ADMIT Internal Medicine; ATTEND Internal Medicine
PROC: 0MB30ZZ Excision of Right Elbow Bursa and Ligament, Open Approach (ICD-10-PCS; principal; 2021-09-06 17:30)
PROC: 0JBG0ZZ Excision of Right Lower Arm Subcutaneous Tissue and Fascia, Open Approach (ICD-10-PCS; principal; 2021-09-06 17:30)
DX: M71.121 Other infective bursitis, right elbow (principal); L03.113 Cellulitis of right upper limb; E78.5 Hyperlipidemia, unspecified; I10 Essential (primary) hypertension; Z79.1 Long term (current) use of non-steroidal anti-inflammatories (NSAID); Z79.899 Other long term (current) drug therapy; Z96.60 Presence of unspecified orthopedic joint implant
CPT/HCPCS: 80048; 80053; 80202; 82565; 83605; 83735; 85025; 87040; 87070; 87077; 87186; 87205; 93005; 96365; 96366; 96367; 99285

== ENCOUNTER → 2021-09-30 | Day surgery (SDC) | payer MEDICARE ==
[~2021-09-30] MED LIST: DEXAMETHASONE SOD PHOSPHATE 4 MG/ML 1 ML VIAL IVP ONE; LACTATED RINGERS 1,000 ML IV SCH; LIDOCAINE 1% (10MG/ML) FOR IV START INTRADERMA PRN; LIDOCAINE 2% INJ 20 MG/ML (2 ML VIAL) ONE; MIDAZOLAM 2 MG/2 ML VIAL ONE; ONDANSETRON 4 MG/2 ML VIAL IVP ONE; PROPOFOL 10 MG/ML 20 ML VIAL IV ONE; Pre Op ABX Message 1 EACH MISC MISCELLANE ONE; ceFAZolin 1,000 MG in SODIUM CHLORIDE 0.9% 1,000 ML IRRIGATION ONE; fentaNYL (PF) 50 MCG/ML 2 ML AMP ONE
--- NOTE | 2021-09-30 17:03 | P.OP ---
Date of Procedure: 09/30/21 Procedure(s) Performed: PREOPERATIVE DIAGNOSES: 1. Right elbow olecranon bursitis status post bursectomy with wound dehiscence POSTOPERATIVE DIAGNOSES: 1. Right elbow olecranon bursitis status post bursectomy with wound dehiscence PROCEDURES PERFORMED: 1. Right elbow olecranon bursal wound exploration, resterilization of wound and primary closure 2. Application of negative pressure wound dressing (Prevena wound vac) ANESTHESIA: Gen. FIELD TECHNICAL SPECIALIST: Samia Leonard PA-C (Assistance with: Patient positioning, arm positioning, cleansing of wound, hemostasis, dressing, wound VAC application) COMPLICATIONS: None ESTIMATED BLOOD LOSS: 10 mL. DISPOSITION: To post-anesthesia care unit INDICATIONS: Mrs. Todd is a 75-year-old female non-diabetic patient with a history of infection involving the right olecranon bursa. She has recently undergone bursectomy and was doing well until the sutures were removed and she had wound dehiscence. The amount of dehiscence of the wound is approximately 4 cm. Although she appears to be doing somewhat better with wet-to-dry dressings and Aquasol silver dressing, I feel that the resolution of the situation would be expedited with primary closure of the wound possibly over a drain and the application of a possible wound VAC device. For these reasons and after full and detailed explanation of the risks and potential complications, the patient wishes to proceed with operative intervention. I have described the risks and potential complications as being inclusive of, but not limited to: Bleeding, infection, scarring, discomfort, blood vessel and/or nerve damage, persistent infection, osteomyelitis, involvement of the tendon of the triceps, stiffness, persistent swelling, weakness, sepsis, chronic wound, loss of limb and/or life, blood clot, pulmonary embolism, and other risks. The patient is aware these risks and wishes to proceed with surgery. Consent form has been signed. PROCEDURE: After appropriate consent was obtained, the patient was taken to the operating room placed in the supine position. Anesthesia was initiated, and after confirmation of adequate anesthesia, the patient was carefully positioned. Care was taken to make sure that all pressure points were adequately padded. Prepping and draping were completed in the usual aseptic fashion using a combination of Hibiclens prep and ChloraPrep. Timeout was called, confirming patient identity, side, procedure, and administration of antibiotics. She has been on Keflex at home, and she was given 2 g of intravenous cefazolin prior to the operation.. The open wound was first treated with preliminary irrigation of the surface of the wound using approximately 200 mL of cefazolin containing solution. Next, the wound was opened using dissecting scissors which was easy to perform. There was no evidence of pus, and the underlying tissues appeared healthy, clean, and granulating. Adhesions were released between the skin and the underlying tissues using a gentle finger sweep. The bursa was then swabbed for cultures on its deep surface with 2 culture swabs. Next, the area was thoroughly cleansed using normal saline containing cefazolin. Approximately 500 mL of solution was used. A dilute solution of chlorhexidine was also placed into the wound and allowed to soak for approximately 1 minute for further stabilization of the wound. This was then rinsed away with the remaining solution of saline. Next, the skin edges were freshened using a 15 blade and Adson forceps. Hemostasis was obtained using electrocautery. Tourniquet was not used for the case. The wound bed being relatively dry, the wound was completely closed securely using 3-0 Vicryl suture in the subcutaneous tissue and 3-0 nylon suture in horizontal mattress fashion for the skin. A Prevena wound VAC was then applied to the surface of the skin and confirmed to have a proper seal. Patient tolerated the procedure well and taken to recovery room in stable condition. Sponge and needle counts were correct
[2021-09-30 17:10] VITALS: TEMP 97.1
[2021-09-30] MEDS: HYDROmorphone 0.5 MG/0.5 ML SYRINGE IVP PRN ×3 (17:25→18:08)
[2021-09-30 19:44] VITALS: BP 142/72; PULSE 67; RESP 16
== END ==
LOC: OR 13:43
PROVIDERS: ATTEND Orthopaedic Surgery
DX: T81.31XA Disruption of external operation (surgical) wound, not elsewhere classified, initial encounter (principal); Y83.8 Other surgical procedures as the cause of abnormal reaction of the patient, or of later complication, without mention of misadventure at the time of the procedure; I10 Essential (primary) hypertension; E78.5 Hyperlipidemia, unspecified; K21.9 Gastro-esophageal reflux disease without esophagitis; Z96.643 Presence of artificial hip joint, bilateral; Z79.899 Other long term (current) drug therapy; Z82.49 Family history of ischemic heart disease and other diseases of the circulatory system; Z87.891 Personal history of nicotine dependence; Z79.51 Long term (current) use of inhaled steroids; Z79.1 Long term (current) use of non-steroidal anti-inflammatories (NSAID)
CPT/HCPCS: 87070; 87205; 87075; 12020; 97607; J2250; J1100; J0690 ×2; J2405; J3010; J2704; J1170; J2001

== ENCOUNTER → 2022-04-07 | Outpatient (CLI) | payer MEDICARE ==
--- NOTE | 2022-04-07 15:33 | MM ---
Reason for Exam: Screening (asymptomatic). Last mammogram was performed 1 year(s) and 1 month(s) ago. Patient History: Menarche at age 13. First Full-Term at age 26. Postmenopausal. Estrogen for 14 years from age 50 until age 64. Progesterone for 14 years from age 50 until age 64. Daughter had breast cancer, age 45. Risk Values: Britta 5 year model risk: 3.7%. NCI Lifetime model risk: 8.4%. Prior Study Comparison: 10/27/2018 Bilateral Screening Mammogram, [facility]. 02/27/2020 Bilateral Screening Mammogram, [facility]. 03/15/2021 Bilateral Screening Mammogram, [facility]. Tissue Density: There are scattered fibroglandular densities. Findings: Analyzed By CAD. Stable small circumscribed oval mass in the left breast middle depth upper outer aspect. Benign-appearing left axillary lymph nodes are redemonstrated. There is no suspicious new group of microcalcifications or new suspicious mass in either breast. Overall Assessment: Benign, BI-RAD 2 Management: Screening Mammogram of both breasts in 1 year. A clinical breast exam by your physician is recommended on an annual basis and results should be correlated with mammographic findings. Electronically signed and approved by: Calvin Arrington M.D.
== END | disposition home or self-care (01) ==
LOC: RADMAMWWP 10:56
PROVIDERS: ATTEND Family Medicine
DX: Z12.31 Encounter for screening mammogram for malignant neoplasm of breast (principal); Z78.0 Asymptomatic menopausal state; Z80.3 Family history of malignant neoplasm of breast
CPT/HCPCS: 77063; 77067